=== PATIENT | female | born 1965 | race Asian ===

== ENCOUNTER 2018-09-23 06:40 | Day surgery (SDC) | payer OTHER ==
[2018-09-23] MEDS ORDERED: SOD CHLORIDE 0.9% 1,000 ML IV (09:00)
[2018-09-23] MEDS ORDERED: CEFAZOLIN 2 GM/50 ML (PMX) 50 ML IVPB (09:00)
[2018-09-23] MEDS ORDERED: ISOSULFAN BLUE 1% 5 ML INJ SC (12:25)
[2018-09-23] MEDS ORDERED: MIDAZOLAM 1 MG/ML 2 ML INJ (12:26)
[2018-09-23] MEDS ORDERED: ONDANSETRON 4 MG INJ (12:26)
[2018-09-23] MEDS ORDERED: METOCLOPRAMIDE 10 MG INJ (12:26)
[2018-09-23] MEDS ORDERED: PROPOFOL 20 ML (12:26)
[2018-09-23] MEDS ORDERED: CEFAZOLIN 1 GM INJ (12:28)
[2018-09-23] MEDS ORDERED: FENTAnyl 50 MCG/ML VIAL (12:36)
[2018-09-23] MEDS: BUPIVACAINE 0.25% (MPF) 30 ML INJ (12:54)
[2018-09-23] MEDS ORDERED: HYDROmorphONE 1 MG/5 ML IV SYRINGE IV ×2 (13:00)
[2018-09-23] MEDS ORDERED: LABETALOL HCL 20MG INJ IV (13:00)
[2018-09-23] MEDS ORDERED: DIPHENHYDRAMINE 50 MG INJ IV (13:00)
[2018-09-23] MEDS ORDERED: OXYCODONE/ACETAMINOPHEN (5/325) TAB PO (13:00)
[2018-09-23] MEDS ORDERED: hydrALAzine 20 MG INJ IV (13:00)
[2018-09-23] MEDS ORDERED: MEPERIDINE 25 MG INJ IV (13:00)
[2018-09-23] MEDS: HYDROmorphONE 1 MG/5 ML IV SYRINGE IV (13:51)
[2018-09-23] MEDS: ONDANSETRON 4 MG INJ IV (13:54)
[2018-09-23] MEDS: HYDROCODONE/APAP (5/325) TAB PO (13:58)
[2018-09-23] MEDS: OXYCODONE/ACETAMINOPHEN (5/325) TAB PO (14:49)
== END 2018-09-23 15:01 | disposition home or self-care (01) ==
LOC: SDS 06:40
DX: N60.91 Unspecified benign mammary dysplasia of right breast (principal); N60.11 Diffuse cystic mastopathy of right breast
CPT/HCPCS: 14001; 84703; 88307